=== PATIENT | female | born 2000 | race Caucasian/White ===

== ENCOUNTER 2022-10-04 08:30 | Emergency (ER) | payer OTHER ==
[~2022-10-04] VITALS: Ht 167.6 cm; Wt 59.0 kg
[2022-10-04] MEDS ORDERED: ASPIRIN325 MG PO (09:36)
== END 2022-10-04 10:50 | disposition home or self-care (01) ==
LOC: ED 08:30 → EDBD 08:32 → ED 10:50
DX: K29.70 Gastritis, unspecified, without bleeding (principal); Z79.82 Long term (current) use of aspirin
CPT/HCPCS: 99283